=== PATIENT | male | born 1970 | race Caucasian/White ===

== ENCOUNTER 2016-10-17 | Emergency (ER) | payer OTHER | END 2016-10-17 13:55 | disposition home or self-care (01) ==

== ENCOUNTER 2016-10-20 13:55 | Emergency (ER) | payer OTHER | END 2016-10-20 17:30 | disposition home or self-care (01) | DX: F41.9 Anxiety disorder, unspecified (principal); H66.001 Acute suppurative otitis media without spontaneous rupture of ear drum, right ear; R03.0 Elevated blood-pressure reading, without diagnosis of hypertension ==

== ENCOUNTER 2016-10-25 12:56 | Emergency (ER) | payer OTHER ==
[2016-10-25] MEDS ORDERED: LORazepam 0.5 MG TABLET PO STA (14:10)
[2016-10-25] MEDS ORDERED: LORazepam 0.5 MG TABLET ONE (14:12)
[2016-10-25] MEDS ORDERED: HYDROcod/ACETAM 5/325 MG TABLET PO STA (14:17)
[2016-10-25] MEDS ORDERED: HYDROcod/ACETAM 5/325 MG TABLET ONE (14:18)
== END 2016-10-25 15:07 | disposition home or self-care (01) ==
DX: F41.9 Anxiety disorder, unspecified (principal)
CPT/HCPCS: 99283; A9270

== ENCOUNTER 2018-10-16 13:18 | Emergency (ER) | payer OTHER ==
[2018-10-16] MEDS ORDERED: MAG HYDROX/AL HYDROX/SIMETH 30 ML UDC PO STA (15:35)
[2018-10-16] MEDS ORDERED: LIDOCAINE VISCOUS 2% 15 ML UDC MM STA (15:35)
[2018-10-16 15:52] VITALS: BP 121/88
[2018-10-16 15:56] LABS: CALCIUM 9.4 mg/dL (8.5-10.3)
--- NOTE | 2018-10-16 16:32 | ED Physician Documentation ---
History of Present Illness - Stated complaint Stated Complaint: STOMACH BURNING, FEELINGS OF PASSING OUT - Chief complaint Chief Complaint: MHE - History obtained from History obtained from: Patient - History of Present Illness Timing: Prior to arrival - Additonal information Additional information: The patient is a 48-year-old male with history of anxiety disorder and agoraphobia, who reports having a near-syncopal episode while at [employer] just prior to arrival. He had been in the store for a short time when he felt anxious, and felt as if he would pass out. He ran out of the store, but his symptoms persisted. He denies any associated chest pain, shortness of breath, fever, cough, or vomiting. He has history of similar symptoms in the past, and states he gets anxiety symptoms on an almost daily basis. He has not been sleeping well lately. He does not drink any coffee or other caffeine-containing beverages. He denies the use of alcohol or drugs. He has a history of disability from the [employer] because of his anxiety disorder. Review of Systems Constitutional: denies: Fever, Fatigue Eyes: denies: Decreased vision Ears: denies: Tinnitus/ringing Nose: denies: Congestion Throat: denies: Sore throat Cardiac: denies: Chest pain / pressure Respiratory: denies: Dyspnea, Cough GI: reports: Nausea. denies: Abdominal Pain, Vomiting : denies: Dysuria Skin: denies: Rash Musculoskeletal: denies: Back pain, Extremity pain Neurologic: denies: Focal weakness, Numbness, Headache Psychiatric: reports: Anxiety PD PAST MEDICAL HISTORY - Past Medical History Cardiovascular: None Respiratory: None Endocrine/Autoimmune: None GI: None Psych: Anxiety - Past Surgical History Past Surgical History: No - Present Medications Home Medications: Ambulatory Orders Medication Instructions Recorded Confirmed Lorazepam [Ativan] 1 mg PO TID PRN #15 tablet 10/17/16 10/25/16 PARoxetine [Paxil] 20 mg PO DAILY #30 tablet 10/17/16 10/25/16 Azithromycin [Zithromax] 250 mg PO DAILY #6 tablet 10/20/16 10/25/16 LORazepam [Lorazepam] 1 mg PO QID PRN #20 tablet 10/25/16 - Allergies Allergies/Adverse Reactions: Allergies Allergy/AdvReac Type Severity Reaction Status Date / Time paroxetine [From Paxil] Allergy Hallucinati Verified 10/16/18 13:45 ons - Living Situation Living Situation: reports: With family Living Arrangement: reports: At home - Social History Does the pt smoke?: No Smoking Status: Never smoker Does the pt drink ETOH?: No Does the pt have substance abuse?: No - POLST Patient has POLST: No PD ED PE NORMAL - Vitals Vital signs reviewed: Yes (Initially hypertensive.) - General General: Alert and oriented X 3, Well developed/nourished - HEENT HEENT: Atraumatic, EOMI, Moist mucous membranes, Pharynx benign - Neck Neck: Supple, no meningeal sign, No adenopathy - Cardiac Cardiac: RRR - Respiratory Respiratory: No respiratory distress, Clear bilaterally - Abdomen Abdomen: Soft, Other (Mild epigastric tenderness to palpation, without rebound or guarding.) - Back Back: No CVA TTP - Derm Derm: No rash - Extremities Extremities: No edema, No calf tenderness / cord - Neuro Neuro: Alert and oriented X 3, No motor deficit, No sensory deficit - Psych Psych: Other (There is minimally anxious at this time, without shakiness or apparent respiratory distress. He verbalizes freely regarding his symptoms.) Results - Vitals Vitals: Oxygen O2 Source Room air - Labs Labs: Laboratory Tests 10/16/18 15:40 Sodium 141 Potassium 4.3 Chloride 107 Carbon Dioxide 26 Anion Gap 8.0 BUN 15 Creatinine 1.0 Estimated GFR (MDRD) 79 L Glucose 105 H Calcium 9.4 PD MEDICAL DECISION MAKING - ED course Complexity details: reviewed old records, reviewed results, re-evaluated patient, considered differential, d/w patient ED course: The patient's presentation is most consistent with acute anxiety reaction, with history of anxiety disorder and agoraphobia. His presentation does not suggest dehydration, acute infectious process, neurologic or cardiovascular disorder. The possibility of epigastric distress was considered. GI cocktail was administered to no appreciable effect. The patient's symptoms resolved spontaneously over a course of observation in the emergency department. No further treatment is clinically warranted at this time. I discussed with him potentially worrisome signs or symptoms that should prompt reevaluation in the emergency department. Departure - Departure Disposition: 01 Home, Self Care Clinical Impression: Anxiety attack Condition: Stable Instructions: ED Stress React Follow-Up: Denise Denton MD [Provider Admit Priv/Credential] - Comments: Follow-up with your primary physician within 2 weeks. Call to schedule appointment. Return to the emergency department if you develop progressively increasing anxiety, shortness of breath, lightheadedness, or otherwise worsening symptoms. Discharge Date/Time: 10/16/18 16:35
== END 2018-10-16 16:35 | disposition home or self-care (01) ==
LOC: ED 13:18
DX: F41.9 Anxiety disorder, unspecified (principal); R10.13 Epigastric pain
CPT/HCPCS: 36415; 80048; 99281; 99283; A9270

== ENCOUNTER 2019-10-18 22:03 | Emergency (ER) | payer OTHER ==
--- NOTE | 2019-10-18 23:12 | ED Physician Documentation ---
History of Present Illness - Stated complaint Stated Complaint: L LEG SWELLING - Chief complaint Chief Complaint: Wound - History obtained from History obtained from: Patient - History of Present Illness Timing: How many weeks ago (2-3) Improved by: nothing Worsened by: no apparent inciting nor exacerbating factors - Additonal information Additional information: c/o 2-3 weeks of gradual onset, gradually increasing LLE swelling, erythema, pruritis. He says he has same symptoms (LLE only) every year around this time but typically resolves with application of some OTC topical medications and thus has not seen a doctor for this. Denies injury, denies chest pain, denies dyspnea Review of Systems Constitutional: denies: Fever, Chills, Sweats Cardiac: reports: Reviewed and negative Respiratory: reports: Reviewed and negative Skin: reports: Rash (LLE) Musculoskeletal: reports: Extremity swelling PD PAST MEDICAL HISTORY - Past Medical History Past Medical History: Yes Cardiovascular: None Respiratory: None Endocrine/Autoimmune: None GI: None Psych: Anxiety - Past Surgical History Past Surgical History: No - Present Medications Home Medications: Ambulatory Orders Medication Instructions Recorded Confirmed Lorazepam [Ativan] 1 mg PO TID PRN #15 tablet 10/17/16 10/25/16 PARoxetine [Paxil] 20 mg PO DAILY #30 tablet 10/17/16 10/25/16 Azithromycin [Zithromax] 250 mg PO DAILY #6 tablet 10/20/16 10/25/16 LORazepam [Lorazepam] 1 mg PO QID PRN #20 tablet 10/25/16 Sulfamethox/Trimeth 800/160 1 each PO BID #14 tablet 10/19/19 [Bactrim Ds 800/160] - Allergies Allergies/Adverse Reactions: Allergies Allergy/AdvReac Type Severity Reaction Status Date / Time paroxetine [From Paxil] Allergy Hallucinati Verified 10/16/18 13:45 ons - Social History Does the pt smoke?: No Smoking Status: Never smoker Does the pt drink ETOH?: No Does the pt have substance abuse?: No - Immunizations Immunizations are current?: No - POLST Patient has POLST: No PD ED PE NORMAL - Vitals Vital signs reviewed: Yes - General General: Alert and oriented X 3, No acute distress, Well developed/nourished - Cardiac Cardiac: RRR, No murmur PD ED PE EXPANDED - Extremities Extremities: Swelling. No: Tenderness, Limited ROM TASHA LE visual: 1 - rash (patchy, flat erythema with some areas of confluence. not warmer to touch than surrounding skin or other extremity), swelling Results - Vitals Vitals: Vital Signs - 24 hr 10/18/19 10/19/19 22:07 01:02 Temperature 37.4 C Heart Rate 96 80 Respiratory 18 18 Rate Blood Pressure 170/100 H 134/82 H O2 Saturation 96 98 Oxygen O2 Source Room air - Rads (name of study) LLE US Radiology: Prelim report reviewed, See rad report PD MEDICAL DECISION MAKING - ED course Complexity details: reviewed results, re-evaluated patient, considered differential, d/w patient ED course: US negative for DVT. some elements of exam suggest cellulitis, and thus will rx bactrim for this possibility. Departure - Departure Disposition: 01 Home, Self Care Clinical Impression: Left leg swelling Condition: Good Instructions: ED Leg Swelling Unilateral Follow-Up: Shyla Morris MD [Primary Care Provider] - Prescriptions: Sulfamethox/Trimeth 800/160 [Bactrim Ds 800/160] 1 each PO BID #14 tablet Discharge Date/Time: 10/19/19 01:02
--- NOTE | 2019-10-19 00:31 | Ultrasound Report ---
Reason: atraumatic swelling LLE Procedure Date: 10/18/2019 Accession Number: [id number] / [id number] Procedure: US - Duplex Ext Veins Left CPT Code: Final Report FULL RESULT: EXAM: LEFT LOWER EXTREMITY VENOUS ULTRASOUND EXAM DATE: 10/18/2019 11:59 PM CLINICAL HISTORY: Atraumatic swelling left lower extremity. COMPARISON: None. TECHNIQUE: Real-time sonographic vascular imaging was performed by the potato peeling machine operator through the lower extremity utilizing both color-flow and Doppler spectral analysis. Multiple sales representative raw fibers static images were saved for review. FINDINGS: Common Femoral Vein (CFV): Normal. CFV-GSV Junction: Normal. Profunda Femoral Vein (PFV): Normal. Femoral Vein (FV) Prox: Normal. Femoral Vein (FV) Mid: Normal. Femoral Vein (FV) Dist: Normal. Popliteal Vein: Normal. Posterior Tibial Veins: Normal. Peroneal Veins: Normal. Other: None. IMPRESSION: No evidence for left leg deep venous thrombosis. RADIA
[2019-10-19] MEDS ORDERED: SULFAMETH/TRIMETH DS 800/160 MG TABLET PO STA (00:57)
[2019-10-19 01:02] VITALS: BP 134/82
== END 2019-10-19 01:02 | disposition home or self-care (01) ==
LOC: ED 22:03
DX: M79.89 Other specified soft tissue disorders (principal); R21 Rash and other nonspecific skin eruption
CPT/HCPCS: 93971; 99283; 99284; A9270

== ENCOUNTER 2020-11-30 20:03 | Emergency (ER) | payer OTHER ==
--- NOTE | 2020-11-30 20:46 | ED Physician Documentation ---
History of Present Illness - Stated complaint Stated Complaint: TOOTH PX/RT SIDE PX - Chief complaint Chief Complaint: Heent - Additonal information Additional information: 50-year-old male presents emergency department for evaluation of acute on chronic tooth pain. He has multiple teeth that are missing and decayed to the gumline especially the upper molars on both sides of his mouth. Over the last few days he has been having increasing pain especially in the right upper jaw with radiation to the ear. The only thing that makes it better is sipping water or soda. He is working with his [employer] benefits manager to get him into a den tist as soon as possible but he admits that he has not seen a dentist for likely about 20 years now. He has been applying Anbesol and Orajel to his teeth as well as taking 600 of Motrin 3 times a day and Tylenol. He has no fevers or trismus. Normal phonation and swallow. No facial swelling. Review of Systems Constitutional: denies: Fever, Chills Eyes: reports: Reviewed and negative Ears: reports: Reviewed and negative Nose: reports: Reviewed and negative Throat: reports: Dental pain / toothache. denies: Sore throat, Swollen tonsils, Swallowed foreign body Cardiac: reports: Reviewed and negative Respiratory: reports: Reviewed and negative GI: reports: Reviewed and negative : reports: Reviewed and negative Skin: reports: Reviewed and negative Musculoskeletal: reports: Reviewed and negative PD PAST MEDICAL HISTORY - Past Medical History Past Medical History: Yes Cardiovascular: None Respiratory: None Endocrine/Autoimmune: None GI: None Psych: Anxiety - Past Surgical History Past Surgical History: No - Present Medications Home Medications: Ambulatory Orders Medication Instructions Recorded Confirmed Lorazepam [Ativan] 1 mg PO TID PRN #15 tablet 10/17/16 10/25/16 PARoxetine [Paxil] 20 mg PO DAILY #30 tablet 10/17/16 10/25/16 Azithromycin [Zithromax] 250 mg PO DAILY #6 tablet 10/20/16 10/25/16 LORazepam [Lorazepam] 1 mg PO QID PRN #20 tablet 10/25/16 Sulfamethox/Trimeth 800/160 1 each PO BID #14 tablet 10/19/19 [Bactrim Ds 800/160] Amox/Clav 875/125 [Augmentin] 1 each PO Q12H #14 tablet 11/30/20 HYDROcod/ACETAM 5/325 [Haskell 5/325] 1 - 2 tablet PO Q6H PRN #10 tablet 11/30/20 - Allergies Allergies/Adverse Reactions: Allergies Allergy/AdvReac Type Severity Reaction Status Date / Time paroxetine [From Paxil] Allergy Hallucinati Verified 11/30/20 20:15 ons - Social History Does the pt smoke?: No Smoking Status: Never smoker Does the pt drink ETOH?: No Does the pt have substance abuse?: No - Immunizations Immunizations are current?: No - POLST Patient has POLST: No PD ED PE EXPANDED - General General: Alert, In Pain - HEENT HEENT: EOMI, Ears normal, Pharynx normal, Dental decay, Dental TTP. No: Pharyngeal erythema, Swollen tonsils, Tonsillar exudate, Dental trauma, Dental abscess (Upper and lower molars on both sides of his jaw are decayed to the gumline. There is mild gumline erythema without fluctuance or obvious drainage.) - Neck Neck: Supple w/out meningeal sx, No tenderness. No: Adenopathy - Cardiac Cardiac: Regular Rate, Radial strong equal, Pedal strong equal, Cap refill < 2 sec - Respiratory Respiratory: Clear to ausultation johnny. No: Distress, Labored - Abdomen Abdomen: Normal Bowel sounds. No: Tender to palpation Results - Vitals Vitals: Vital Signs - 24 hr 11/30/20 20:11 Temperature 36.7 C Heart Rate 72 Respiratory 16 Rate Blood Pressure 154/95 H O2 Saturation 96 Oxygen O2 Source Room air PD MEDICAL DECISION MAKING - ED course Complexity details: reviewed results, re-evaluated patient, d/w patient ED course: 50-year-old male who drove himself here to the emergency department presents for acute on chronic dentalgia. He has multiple molars on both sides of the jaw that are decayed to the gumline. There is no trismus dysphonia or fevers. He is working to get set up with a dentist. He does seem to be taking reasonable measures at home to control his dental pain but has been unsuccessful and appears quite uncomfortable. I suspect that he may have an underlying infection causing the worsening pain therefore I will start him on a course of Augmentin. I will also write for a limited amount of narcotics including a prepack to take home tonight. Emergent and worrisome return precautions were discussed. Departure - Departure Disposition: 01 Home, Self Care Clinical Impression: Dentalgia, Dental decay Condition: Stable Record reviewed to determine appropriate education?: Yes Prescriptions: Amox/Clav 875/125 [Augmentin] 1 each PO Q12H #14 tablet HYDROcod/ACETAM 5/325 [Haskell 5/325] 1 - 2 tablet PO Q6H PRN #10 tablet PRN Reason: Pain Comments: You are seen in the emergency department tonight for dental pain. You have multiple decaying teeth that are the cause of your dental pain. Your ears are not infected. Your ear pain is likely referred due to the nerves in the teeth that are inflamed. I think the pain will improve if we put you on a course of antibiotics. Your first dose of Augmentin was given in the emergency department tonight tomorrow please fill the prescription and begin taking as directed. Would also like you to rinse your mouth with warm salt water 3 times a day. Continue with the ibuprofen and Orajel. I have prescribed a very limited amount of hydrocodone to be used for the severe pain. The emergency department will not be able to refill this in the future. Continue to establish yourself with a dentist as soon as you are able. Return to the emergency department if you have facial swelling, cannot open your jaw, cannot swallow normally speak normally or develop any fevers.
[2020-11-30] MEDS ORDERED: HYDROcod/ACET 5/325 Prepack 4 PO STA (20:50)
[2020-11-30] MEDS ORDERED: AMOX/CLAV 875 MG/125 MG TABLET PO STA (20:53)
[2020-11-30 20:59] VITALS: BP 130/90
== END 2020-11-30 20:58 | disposition home or self-care (01) ==
LOC: ED 20:03
DX: K08.89 Other specified disorders of teeth and supporting structures (principal); K02.9 Dental caries, unspecified
CPT/HCPCS: 99282; 99284; A9270

== ENCOUNTER 2021-10-13 18:37 | Emergency (ER) | payer OTHER ==
[2021-10-13 18:49] VITALS: BP 155/95
[2021-10-13] MEDS ORDERED: AMOX/CLAV 875 MG/125 MG TABLET PO STA (19:03)
[2021-10-13] MEDS ORDERED: HYDROcod/ACET 5/325 Prepack 4 PO STA (19:03)
--- NOTE | 2021-10-13 19:05 | ED Physician Documentation ---
PD HPI HEENT - Stated complaint Stated Complaint: R EAR PX - Chief complaint Chief Complaint: Heent - History obtained from History obtained from: Patient - Additional information Additional information: 4 days of severe right mandibular dental pain. He has known cavity there. Has not seen a dentist in quite some time. Now pain radiating to the right ear with popping. No fevers. Review of Systems Constitutional: reports: Reviewed and negative Nose: reports: Reviewed and negative Cardiac: reports: Reviewed and negative Respiratory: reports: Reviewed and negative PD PAST MEDICAL HISTORY - Past Medical History Cardiovascular: None Respiratory: None Endocrine/Autoimmune: None GI: None Psych: Anxiety - Past Surgical History Past Surgical History: No - Present Medications Home Medications: Ambulatory Orders Medication Instructions Recorded Confirmed HYDROcod/ACETAM 5/325 [[place] 5/325] 1 - 2 tablet PO Q6H PRN #10 tablet 11/30/20 Amox/Clav 875/125 [Augmentin] 1 each PO Q12H #20 tablet 10/13/21 HYDROcod/ACETAM 5/325 [[place] 5/325] 1 - 2 tab PO Q6H PRN #15 tablet 10/13/21 Ibuprofen 2 tab ORAL Q6HR 10/13/21 10/13/21 Ibuprofen [Motrin] 800 mg PO Q8H PRN #30 tablet 10/13/21 - Allergies Allergies/Adverse Reactions: Allergies Allergy/AdvReac Type Severity Reaction Status Date / Time paroxetine [From Paxil] Allergy Hallucinati Verified 11/30/20 20:15 ons - Social History Does the pt smoke?: No Smoking Status: Never smoker Does the pt drink ETOH?: No Does the pt have substance abuse?: No - Immunizations Immunizations are current?: No - POLST Patient has POLST: No PD ED PE NORMAL - Vitals Vital signs reviewed: Yes - General General: Alert and oriented X 3, No acute distress - HEENT HEENT: Other (Right TM appears normal, he has generally poor dentition with many cavities, the culprit tooth is the last remaining mandibular molar with tenderness but no sublingual edema or trismus. No facial swelling.) - Neck Neck: Supple, no meningeal sign, No bony TTP - Cardiac Cardiac: RRR, No murmur - Neuro Neuro: Alert and oriented X 3, Normal speech - Psych Psych: Normal mood, Normal affect Results - Vitals Vitals: Vital Signs - 24 hr 10/13/21 18:46 Temperature 36.3 C L Heart Rate 84 Respiratory 20 Rate Blood Pressure 155/95 H O2 Saturation 99 Oxygen O2 Source Room air Departure - Departure Disposition: 01 Home, Self Care Clinical Impression: Pain due to dental caries Condition: Good Record reviewed to determine appropriate education?: Yes Instructions: ED Tooth Pain Prescriptions: Amox/Clav 875/125 [Augmentin] 1 each PO Q12H #20 tablet Ibuprofen [Motrin] 800 mg PO Q8H PRN #30 tablet PRN Reason: PAIN &/OR FEVER HYDROcod/ACETAM 5/325 [[place] 5/325] 1 - 2 tab PO Q6H PRN #15 tablet PRN Reason: Pain Comments: I sent your prescription electronically to [facility] in [place]. It is very important that you follow-up with a dentist. When it comes to dental problems like yours, the emergency department can only offer a short-term solution to your long-term problem. A couple of low cost options for dental care include: [facility] in [place], calls [phone] for an appointment Or [facility] in [place], call [phone] for an appointment. I am prescribing a short course of narcotic pain medication for you. These are potentially dangerous and addictive medications that should be used carefully. These medications may constipate you. Take an [id number] stool softener (docusate) twice daily with plenty of water while taking these medications. If you go 24 hours without a bowel movement, take [id number] miralax, per package instructions. Do not drink or drive while taking these medications. If you received narcotic or sedating medications while in the emergency department, do not drive for 24 hours. Store this medication in a safe, secure place and out of reach of children. It is a violation of federal law to give or sell this medication to another person or to use in a manner other than prescribed. The ED will not refill narcotic prescriptions, including prescriptions lost or stolen. To dispose of unwanted medications: 1. [facility] [address] in [place] has a medication drop box. They accept prescription medications (in pill form) Friday through Friday 9:00 a.m. to 5:00 p.m. 2. [facility] accepts prescription medications (in pill form only) for disposal year round. Call for more information. 3. Contact the [facility] for the next [facility] sponsored prescription drug collection event. , [phone], or [phone]; Note that many narcotic pain relievers also contain Tylenol/acetaminophen. Please ensure that your total dose of acetaminophen from all sources does not exceed 3 g (3000 mg) per day.
== END 2021-10-13 19:20 | disposition home or self-care (01) ==
LOC: ED 18:37
DX: K02.9 Dental caries, unspecified (principal)
CPT/HCPCS: 99282; 99283; A9270